=== PATIENT | male | born 1970 | race Caucasian/White ===

== ENCOUNTER 2017-03-07 19:27 | Emergency (ER) | payer MEDICAID, OTHER ==
[~2017-03-07] VITALS: Ht 177.8 cm; Wt 78.0 kg
[~2017-03-07 19:27] MED LIST: 1-ME1LIQ PO; PROT40TA PO
[2017-03-07 19:28] VITALS: BP 137/94; PULSE 118; RESP 20; TEMP 99.5; O2SAT 95
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
[2017-03-07] MEDS ORDERED: GABA600T PO (19:44)
[2017-03-07] MEDS ORDERED: LIPI40TA PO (19:47)
[2017-03-07] MEDS ORDERED: OMEP40CA2 PO (19:47)
[2017-03-07] MEDS ORDERED: LISI30TA4 PO (19:47)
[2017-03-07] MEDS ORDERED: KETOROLAC TROMETHAMINE 60 MG/2 ML (IM) VIAL IM ONE (20:00)
[2017-03-07] MEDS ORDERED: SODIUM CHLOR 0.9% 1000 ML INJ 1,000 ML IV ONE (20:00)
[2017-03-07 20:19] LABS: BASOPHIL # 0.1 TH/MM3 (0-0.2); BASOPHIL % 1.3 % (0.0-2.0); EOSINOPHIL # 0.3 TH/MM3 (0-0.4); HEMATOCRIT 41.6 % (39.0-51.0); HEMO FLAGS DIFF FINAL; LYMPH % 23.8 % (9.0-44.0); LYMPHOCYTE # 2.3 TH/MM3 (1.0-4.8); MEAN CORPUSCULAR HEMOGLOBIN 32.7 PG (27.0-34.0); MEAN CORPUSCULAR HGB CONC 35.1 % (32.0-36.0); MONO % 10.7 % (0.0-8.0); NEUT % 61.2 % (16.0-70.0); PLATELET COUNT 280 TH/MM3 (150-450); RED BLOOD COUNT 4.48 MIL/MM3 (4.50-5.90); RED CELL DISTRIBUTION WIDTH 15.1 % (11.6-17.2); WHITE BLOOD COUNT 9.8 TH/MM3 (4.0-11.0)
--- NOTE | 2017-03-07 20:19 | RADRPT ---
EXAM DATE/TIME: 03/07/2017 19:44 [facility] COMPARISON: CHEST SINGLE AP, September 22, 2014, 16:33. INDICATIONS : Chest and rib pain after fall, short of breath. MEDICAL HISTORY : None. SURGICAL HISTORY : None. ENCOUNTER: Initial ACUITY: 2 days PAIN SCORE: 10/10 LOCATION: Left chest FINDINGS: Bibasilar patchiness is noted consistent with mild infiltrates and/or atelectasis. Clinical correlat ion is recommended. No pneumothorax is noted. The heart is normal. CONCLUSION: 1. Minimal bibasilar patchiness consistent with atelectasis and/or minimal infiltrates. Clinical cor relation is recommended. 2. No pneumothorax. Eliseo Davis MD on March 07, 2017 at 20:06 Board Certified Radiologist. This report was verified electronically.
[2017-03-07] MEDS ORDERED: MORPHINE SULFATE 4 MG/ML INJ IV PUSH ONE (20:30)
[2017-03-07 20:40] LABS: ANION GAP 12 MEQ/L (5-15); AST (GOT) 36 U/L (15-37); BLOOD UREA NITROGEN 10 MG/DL (7-18); CHLORIDE 105 MEQ/L (98-107); GLOMERULAR FILTRATION RATE 97 ML/MIN (>89); POTASSIUM 3.8 MEQ/L (3.5-5.1); SODIUM (NA) 138 MEQ/L (136-145)
[2017-03-07 20:43] LABS: ALKALINE PHOSPHATASE 81 U/L (45-117); ALT (GPT) 64 U/L (12-78); TOTAL BILIRUBIN ADULT 0.3 MG/DL (0.2-1.0)
[2017-03-07 21:00] VITALS: BP 138/82; PULSE 92; RESP 20; O2SAT 97
[2017-03-07 22:01] VITALS: BP 130/88; PULSE 82; RESP 20; O2SAT 94
[2017-03-07] MEDS ORDERED: IOHEXOL 350 MG/ML 10 ML VIAL (for RAD DIAG) IV ONE (22:32)
--- NOTE | 2017-03-07 22:37 | RADRPT ---
EXAM DATE/TIME: 03/07/2017 22:18 [facility] COMPARISON: No previous studies available for comparison. INDICATIONS : Left chest wall pain after fall two days ago. IV CONTRAST: 75 cc Omnipaque 350 (iohexol) IV RADIATION DOSE: 16.03 CTDIvol (mGy) MEDICAL HISTORY : Hypertension. SURGICAL HISTORY : None. ENCOUNTER: Initial ACUITY: 1 day PAIN SCALE: 6/10 LOCATION: Left chest TECHNIQUE: Volumetric scanning of the chest was performed using a pulmonary embolism protocol MIP images were re constructed. Using automated exposure control and adjustment of the mA and/or kV according to patien t size, radiation dose was kept as low as reasonably achievable to obtain optimal diagnostic quality images. FINDINGS: PULMONARY ARTERIES: No filling defects are seen in the pulmonary arteries through the segmental level. LUNGS: Scattered subpleural bleb formation as well as peripheral fibrotic scarring bilaterally. There is no consolidation or pneumothorax . No concerning pulmonary nodule is visualized. PLEURAE: There is no pleural thickening or pleural effusion. MEDIASTINUM: There is good visualization of the great vessels of the middle mediastinum. No evidence of mediastin al or hilar adenopathy/mass. Cardiomegaly and coronary artery calcifications. MUSCULOSKELETAL: There are acute fractures involving the lateral aspect of the left third fourth and fifth ribs. MISCELLANEOUS: The visualized upper abdominal organs demonstrate no acute abnormality. Enlarged fatty liver. CONCLUSION: 1. No evidence of pulmonary embolism. 2. Acute fractures involving lateral aspect of the left third, fourth, and fifth ribs. 3. Cardiomegaly and coronary artery calcifications. 4. Scattered subpleural bleb formation as well as peripheral fibrotic scarring bilaterally. 5. Enlarged fatty liver. Eliseo Davis MD on March 07, 2017 at 22:30 Board Certified Radiologist. This report was verified electronically.
[2017-03-07] MEDS ORDERED: HYDR-3533 PO (22:52)
--- NOTE | 2017-03-07 22:52 | PD ---
Data Data Last Documented VS Vital Signs Date Time Temp Pulse Resp B/P Pulse Ox O2 Delivery O2 Flow Rate FiO2 03/07/17 22:01 82 20 130/88 94 Room Air 03/07/17 19:28 99.5 Orders Chest, Single Ap (03/07/17 ) Ketorolac Inj (Toradol Inj) (03/07/17 20:00) Complete Blood Count With Diff (03/07/17 19:56) Comprehensive Metabolic Panel (03/07/17 19:56) Sodium Chlor 0.9% 1000 Ml Inj (Ns 1000 M (03/07/17 20:00) Alcohol (Ethanol) (03/07/17 20:02) Electrocardiogram (03/07/17 ) Ct Pulmonary Angiogram (03/07/17 20:26) Morphine Inj (Morphine Inj) (03/07/17 20:30) Iohexol 350 Inj (Omnipaque 350 Inj) (03/07/17 22:32) Resp Incentive Spirometry (03/07/17 ) Labs Laboratory Tests Test 03/07/17 20:10 White Blood Count 9.8 TH/MM3 Red Blood Count 4.48 MIL/MM3 Hemoglobin 14.6 GM/DL Hematocrit 41.6 % Mean Corpuscular Volume 93.0 FL Mean Corpuscular Hemoglobin 32.7 PG Mean Corpuscular Hemoglobin 35.1 % Concent Red Cell Distribution Width 15.1 % Platelet Count 280 TH/MM3 Mean Platelet Volume 8.1 FL Neutrophils (%) (Auto) 61.2 % Lymphocytes (%) (Auto) 23.8 % Monocytes (%) (Auto) 10.7 % Eosinophils (%) (Auto) 3.0 % Basophils (%) (Auto) 1.3 % Neutrophils # (Auto) 6.0 TH/MM3 Lymphocytes # (Auto) 2.3 TH/MM3 Monocytes # (Auto) 1.1 TH/MM3 Eosinophils # (Auto) 0.3 TH/MM3 Basophils # (Auto) 0.1 TH/MM3 CBC Comment DIFF FINAL Differential Comment Sodium Level 138 MEQ/L Potassium Level 3.8 MEQ/L Chloride Level 105 MEQ/L Carbon Dioxide Level 21.0 MEQ/L Anion Gap 12 MEQ/L Blood Urea Nitrogen 10 MG/DL Creatinine 0.84 MG/DL Estimat Glomerular Filtration 97 ML/MIN Rate Random Glucose 101 MG/DL Calcium Level 9.0 MG/DL Total Bilirubin 0.3 MG/DL Aspartate Amino Transf 36 U/L (AST/SGOT) Alanine Aminotransferase 64 U/L (ALT/SGPT) Alkaline Phosphatase 81 U/L Total Protein 8.5 GM/DL Albumin 3.8 GM/DL Ethyl Alcohol Level 178 MG/DL MDM Supervised Visit with DEBORAH: Yes Narrative Course I, Dr. Redman, have reviewed the advance practice practitioner's documentation and am in agreement, met with the patient face to face, made the diagnosis, and the medical decision making was done by me. See her note for further details. Briefly this a 47-year-old male who is here for evaluation of left lateral and posterior rib pain for last 2 days after falling. The patient states he was sleepwalking when the next thing he knew he woke up on the ground done a couple of steps in his home. He admits to drinking a few beers per day. Denies illicit drug use. Smokes cigarettes daily. He is not having left lateral and posterior chest wall pain that is worse with movements, palpation, and inspiration. He denies hemoptysis. No dyspnea. Vital signs show heart rate 82, blood pressure 130/88, pulse ox 94% on room air , oral temp of 99.5F. CBC is unremarkable. CMP is unremarkable. Alcohol level is 178. Chest x-ray: Minimal bibasilar patchiness consistent with atelectasis and/or minimal infiltrates, clinical correlation is recommended. No pneumothorax. CT pulmonary angiogram: CONCLUSION: 1. No evidence of pulmonary embolism. 2. Acute fractures involving lateral aspect of the left third, fourth, and fifth ribs. 3. Cardiomegaly and coronary artery calcifications. 4. Scattered subpleural bleb formation as well as peripheral fibrotic scarring bilaterally. 5. Enlarged fatty liver. Patient was made aware of all findings. He states he wants to go home. He will be discharged home with an incentive spirometer and pain medication. PMD follow-up this week. He was informed on when to return to the emergency department. He verbalizes understanding and agreement with plan. Diagnosis Primary Impression: Multiple rib fractures Qualified Code: S22.42XA - Closed fracture of multiple ribs of left side, initial encounter Referrals: Primary Care Physician 3 days Additional Instruction: Follow-up with your primary care physician this week. Return to the emergency department for worsening symptoms or any other concerns. Scripts Hydrocodone-Acetaminophen (Lortab)5-325 Mg Tab1 Tab PO Q6H PRN (PAIN) #15 TAB Ref 0 Prov:Toby Redman MD 03/07/17 Disposition: 01 DISCHARGE HOME Condition: Stable Toby Redman MD March 07, 2017 22:52
[2017-03-07 23:20] VITALS: BP 130/76
[2017-03-07] MEDS ORDERED: ACETAMINOPHEN/HYDROcodone 325 MG/5 MG TAB PO ONE (23:45)
--- NOTE | 2017-03-08 08:17 | EKG ---
Date Performed: 03/07/2017 Time Performed: 20:33:41 PTAGE: 47 years EKG: SINUS TACHYCARDIA NONSPECIFIC ST ABNORMALITIES ABNORMAL ECG PREVIOUS TRACING : 03/07/2017 20.23 No significant change from previous tracing noted. DOCTOR: Arvin Zazueta Interpretating Date/Time 03/08/2017 08:16:30
== END 2017-03-07 23:37 | disposition home or self-care (01) ==
LOC: NEPD 19:27
DX: S22.42XA Multiple fractures of ribs, left side, initial encounter for closed fracture (principal); I10 Essential (primary) hypertension; I25.10 Atherosclerotic heart disease of native coronary artery without angina pectoris; F17.210 Nicotine dependence, cigarettes, uncomplicated; F17.290 Nicotine dependence, other tobacco product, uncomplicated; F10.20 Alcohol dependence, uncomplicated; K76.0 Fatty (change of) liver, not elsewhere classified; R00.0 Tachycardia, unspecified; W19.XXXA Unspecified fall, initial encounter; Y93.01 Activity, walking, marching and hiking; Y92.009 Unspecified place in unspecified non-institutional (private) residence as the place of occurrence of the external cause; Y90.6 Blood alcohol level of 120-199 mg/100 ml
CPT/HCPCS: 71010; 71275; 80053; 80307; 85025; 93005; 96361; 96372; 96374; 99285; J1885; J2270; J7030; Q9967